=== PATIENT | female | born 1965 | race Caucasian/White ===

== ENCOUNTER → 2021-01-03 | Outpatient (CLI) | payer BC, OTHER ==
[~2021-01-03] VITALS: Ht 167.6 cm; Wt 68.0 kg
== END ==
LOC: OPSV 11:37
DX: K90.9 Intestinal malabsorption, unspecified (principal)
CPT/HCPCS: 96365; J1756

== ENCOUNTER → 2021-01-10 | Outpatient (CLI) | payer BC, OTHER ==
[~2021-01-10] VITALS: Ht 167.6 cm; Wt 68.0 kg
== END ==
LOC: OPSV 11:00
DX: K90.9 Intestinal malabsorption, unspecified (principal)
CPT/HCPCS: 96365; J1756

== ENCOUNTER → 2021-01-17 | Outpatient (CLI) | payer BC, OTHER ==
[~2021-01-17] VITALS: Ht 167.6 cm; Wt 68.0 kg
== END ==
LOC: OPSV 11:00
DX: K90.9 Intestinal malabsorption, unspecified (principal)
CPT/HCPCS: 96365; J1756

== ENCOUNTER → 2021-01-24 | Outpatient (CLI) | payer BC, OTHER ==
[~2021-01-24] VITALS: Ht 167.6 cm; Wt 68.0 kg
== END ==
LOC: OPSV 11:00
DX: K90.9 Intestinal malabsorption, unspecified (principal)
CPT/HCPCS: 96365; J1756

== ENCOUNTER → 2021-01-31 | Outpatient (CLI) | payer BC, OTHER ==
[~2021-01-31] VITALS: Ht 167.6 cm; Wt 68.0 kg
[2021-01-31 14:10] LABS: HEMOGLOBIN 10.3 gm/dl (12.3-15.3); RED BLOOD COUNT 4.7 M/UL (4.00-5.10); WHITE BLOOD COUNT 6.1 K/UL (4.5-11.0)
== END ==
LOC: OPSV 13:00
PROVIDERS: Internal Medicine
DX: K90.9 Intestinal malabsorption, unspecified (principal)
CPT/HCPCS: 36415; 82728; 85027; 96365; J1756

== ENCOUNTER → 2021-02-07 | Outpatient (CLI) | payer BC, OTHER ==
[~2021-02-07] VITALS: Ht 167.6 cm; Wt 68.0 kg
== END ==
LOC: OPSV 13:00
DX: K90.9 Intestinal malabsorption, unspecified (principal)
CPT/HCPCS: 96365; J1756

== ENCOUNTER → 2021-02-14 | Outpatient (CLI) | payer BC, OTHER ==
[~2021-02-14] VITALS: Ht 167.6 cm; Wt 68.0 kg
== END ==
LOC: OPSV 12:48
DX: K90.9 Intestinal malabsorption, unspecified (principal)
CPT/HCPCS: 96365; J1756

== ENCOUNTER → 2021-02-21 | Outpatient (CLI) | payer BC, OTHER ==
[~2021-02-21] VITALS: Ht 167.6 cm; Wt 68.0 kg
== END ==
LOC: OPSV 13:00
DX: K90.9 Intestinal malabsorption, unspecified (principal)
CPT/HCPCS: 96365; J1756

== ENCOUNTER → 2021-03-21 | Outpatient (CLI) | payer BC, OTHER ==
[~2021-03-21] VITALS: Ht 167.6 cm; Wt 68.0 kg
== END ==
LOC: OPSV 13:00
DX: K90.9 Intestinal malabsorption, unspecified (principal)
CPT/HCPCS: 96365; J1756

== ENCOUNTER → 2021-04-18 | Outpatient (CLI) | payer BC, OTHER ==
[~2021-04-18] VITALS: Ht 167.6 cm; Wt 68.0 kg
== END ==
LOC: OPSV 13:00
DX: K90.9 Intestinal malabsorption, unspecified (principal)
CPT/HCPCS: 96365; J1756

== ENCOUNTER → 2021-05-16 | Outpatient (CLI) | payer BC, OTHER ==
[~2021-05-16] VITALS: Ht 167.6 cm; Wt 68.0 kg
[2021-05-16 13:17] LABS: HEMOGLOBIN 12.8 gm/dl (12.3-15.3); RED BLOOD COUNT 4.96 M/UL (4.00-5.10); WHITE BLOOD COUNT 5.2 K/UL (4.5-11.0)
== END ==
LOC: OPSV 12:40
PROVIDERS: Internal Medicine
DX: K90.9 Intestinal malabsorption, unspecified (principal)
CPT/HCPCS: 82728; 85027; 96365; J1756

== ENCOUNTER → 2021-06-13 | Outpatient (CLI) | payer BC, OTHER | LOC: OPSV 13:00 | DX: K90.9 Intestinal malabsorption, unspecified (principal) | CPT/HCPCS: 96365; J1756 ==

== ENCOUNTER → 2021-07-11 | Outpatient (CLI) | payer BC, OTHER ==
[~2021-07-11] VITALS: Ht 167.6 cm; Wt 68.0 kg
== END ==
LOC: OPSV 13:00
DX: K90.9 Intestinal malabsorption, unspecified (principal)
CPT/HCPCS: 96365; J1756

== ENCOUNTER → 2021-08-08 | Outpatient (CLI) | payer BC, OTHER ==
[~2021-08-08] VITALS: Ht 167.6 cm; Wt 68.0 kg
== END ==
LOC: OPSV 13:00
DX: K90.9 Intestinal malabsorption, unspecified (principal)
CPT/HCPCS: 96365; J1756